=== PATIENT | female | born 1955 | race Two or more races ===

== ENCOUNTER → 2020-07-09 | Outpatient (CLI) | payer OTHER ==
[~2020-07-09] VITALS: Ht 30.5 cm; Wt 0.5 kg
[~2020-07-09] MED LIST: METOPROLOL TARTRATE 1MG/1ML-5ML VIAL IV ONE; NITROGLYCERIN 0.4 MG SL TAB SL ONE
[2020-07-09] MEDS: METOPROLOL TARTRATE 1MG/1ML-5ML VIAL IV SCH ×2 (12:57→13:00)
== END | disposition home or self-care (01) ==
LOC: CT 09:38
DX: I25.10 Atherosclerotic heart disease of native coronary artery without angina pectoris (principal); M47.814 Spondylosis without myelopathy or radiculopathy, thoracic region; J98.4 Other disorders of lung; R07.9 Chest pain, unspecified
CPT/HCPCS: 75571; 75574; Q9967